=== PATIENT | female | born 1965 | race Caucasian/White ===

== ENCOUNTER 2018-04-28 18:04 | Emergency (ER) | payer BC ==
--- NOTE | 2018-04-28 18:23 | ED.PDOC ---
History of Present Illness - General Chief Complaint: General Stated Complaint: dizziness, vomiting, chest pressure yesterday Time Seen by Provider: 04/28/18 18:08 Source: patient Exam Limitations: no limitations - History of Present Illness Initial Comments: Tanya Holden 52 y/o female came to ER stating felt dizzy feels like spinning around and felt heart was racing also had some chest pressure with vomiting went inside the house then after 30 minutes felt better.Able to sleep ,eat beakfast,supper ,lunch .then about 3 PM today felt same symptoms and also her friend a nurse felt her pulse and noted was fast.She decided to come and get evaluated. here at ER.No weakness,no dysarthria,no blurry vision. Timing/Duration: 24 hours Severity: moderate Improving Factors: nothing Worsening Factors: nothing Associated Symptoms: other - see hpi Allergies/Adverse Reactions: Allergies Penicillins Allergy (Verified 04/28/18 18:16) Review of Systems - Review of Systems Constitutional: States: no symptoms reported EENTM: States: no symptoms reported Respiratory: States: no symptoms reported Cardiology: States: see HPI Gastrointestinal/Abdominal: States: no symptoms reported Musculoskeletal: States: no symptoms reported Skin: States: no symptoms reported Neurological: States: see HPI, other - dizziness Endocrine: States: no symptoms reported Hematologic/Lymphatic: States: no symptoms reported Past Medical History (General) - Patient Medical History Hx Hypertension: Yes Hx Other PMH: Yes - depression Surgical History: tonsillectomy, other - laparoscopy for endometriosis - Social History Hx Tobacco Use: No Hx Alcohol Use: Yes - eight beers daily Hx Substance Use: No - Female History Patient is a Female of Child Bearing Age (10 -59 yrs old): No Patient : No Family Medical History - Family History Father Hx Cardiac Disease: Yes Hx Family Cancer: Yes - dad-lung Physical Exam - Physical Exam General Appearance: Alert, Comfortable, No apparent distress Eye Exam: bilateral normal Ears, Nose, Throat: hearing grossly normal, normal ENT inspection, normal pharynx Neck: non-tender, full range of motion, supple Respiratory: chest non-tender, lungs clear, normal breath sounds Cardiovascular/Chest: normal peripheral pulses, regular rate, rhythm, no murmur Peripheral Pulses: radial,right: 2+, radial,left: 2+ Gastrointestinal/Abdominal: normal bowel sounds, non tender, soft, no organomegaly Back Exam: normal inspection, no CVA tenderness, no vertebral tenderness Extremity: non-tender, no pedal edema, no calf tenderness Neurologic: alert, oriented x 3 Skin Exam: normal color, warm/dry Progress - Progress Progress: 04/28/18 19:37 Vital Signs - 24 hr 04/28/18 04/28/18 04/28/18 18:10 18:12 18:35 Temperature 98.6 F Pulse Rate [ 85 88 102 H left brachial] Respiratory 16 Rate Blood Pressure 128/91 112/78 [left brachial] O2 Sat by Pulse 100 100 Oximetry 04/28/18 21:05 Recommended hospital admission for observation but patient declined her friend was with her during discussion for hospital obs.Labs /EKGS d/w patient as well as needing alcohol detox and counseling. - Results/Orders Results/Orders: 04/28/18 18:21 IV Care:Saline Lock per Protoc QSHIFT 04/28/18 18:30 EKG STAT 04/28/18 19:00 Multiple Vitamin Inj [MVI Injectable] 10 ml Thiamine HCl Inj 100 mg Sodium Chloride 0.9% 1000ML [Ns 1000 ml] 1,000 ml IVS Q24H Laboratory Results - last 24 hr 04/28/18 04/28/18 04/28/18 18:54 18:54 18:55 WBC 6.2 RBC 4.18 L Hgb 14.6 Hct 42.5 MCV 101.7 H MCH 34.9 H MCHC 34.3 RDW 12.7 Plt Count 275 MPV 6.5 L Absolute Neuts (auto) 4.20 Absolute Lymphs (auto) 1.20 Absolute Monos (auto) 0.70 Absolute Eos (auto) 0.00 Absolute Basos (auto) 0.00 Neutrophils % 67.6 Lymphocytes % 19.2 L Monocytes % 12.0 H Eosinophils % 0.7 L Basophils % 0.5 PT 9.9 INR 0.99 PTT (SP) 25.0 D-Dimer, Quantitative 0.28 Sodium 131 L Potassium 3.3 L Chloride 91 L Carbon Dioxide 25 Anion Gap 18.3 H BUN 16 Creatinine 0.82 BUN/Creatinine Ratio 19.5 Random Glucose 99 Serum Osmolality 263.9 L Calcium 9.6 Magnesium 1.8 Total Bilirubin 1.3 H Direct Bilirubin 0.3 H Indirect Bilirubin 1.0 H AST 64 H ALT 37 Alkaline Phosphatase 45 Creatine Kinase 74 CK-MB (CK-2) 1.9 CK-MB (CK-2) % Not Reportable Troponin I < 0.02 B-Natriuretic Peptide 15.8 Serum Total Protein 8.3 H Albumin 5.2 Urine Color Yellow Urine Appearance Clear Urine pH 5.5 Ur Specific Ward 1.015 Urine Protein Trace Urine Glucose (UA) Negative Urine Ketones 15 H Urine Blood Negative Urine Nitrite Negative Urine Bilirubin Small H Urine Urobilinogen 0.2 Ur Leukocyte Esterase Negative Urine RBC 1-3 Urine WBC 3-5 H Ur Epithelial Cells 30-40 Urine Bacteria 2+ H Urine Mucus Small Urine Opiates Screen Urine Barbiturates Ur Phencyclidine Scrn U Amphetamin/Meth Scrn U Benzodiazepines Scrn U Cocaine Metab Screen U Cannabinoids Screen 04/28/18 04/28/18 19:19 20:15 WBC RBC Hgb Hct MCV MCH MCHC RDW Plt Count MPV Absolute Neuts (auto) Absolute Lymphs (auto) Absolute Monos (auto) Absolute Eos (auto) Absolute Basos (auto) Neutrophils % Lymphocytes % Monocytes % Eosinophils % Basophils % PT INR PTT (SP) D-Dimer, Quantitative Sodium Potassium Chloride Carbon Dioxide Anion Gap BUN Creatinine BUN/Creatinine Ratio Random Glucose Serum Osmolality Calcium Magnesium Total Bilirubin Direct Bilirubin Indirect Bilirubin AST ALT Alkaline Phosphatase Creatine Kinase CK-MB (CK-2) CK-MB (CK-2) % Troponin I < 0.02 B-Natriuretic Peptide Serum Total Protein Albumin Urine Color Urine Appearance Urine pH Ur Specific Ward Urine Protein Urine Glucose (UA) Urine Ketones Urine Blood Urine Nitrite Urine Bilirubin Urine Urobilinogen Ur Leukocyte Esterase Urine RBC Urine WBC Ur Epithelial Cells Urine Bacteria Urine Mucus Urine Opiates Screen Negative Urine Barbiturates Negative Ur Phencyclidine Scrn Negative U Amphetamin/Meth Scrn Negative U Benzodiazepines Scrn Negative U Cocaine Metab Screen Negative U Cannabinoids Screen Negative - EKG/XRAY/CT EKG: Sinus, nonspecific ST T wave Chg Comments: HR-91 XRAY: chest - no active disease Departure - Departure Clinical Impression: Dizzinesses, Chest pressure, Heart palpitations Alcohol dependence Qualifiers: Substance use status: uncomplicated Qualified Code(s): F10.20 - Alcohol dependence, uncomplicated Time of Disposition: 21:05 Disposition: Discharge to Home or Self Care Condition: Fair Departure Forms: ED Discharge - Pt. Copy, Patient Portal Self Enrollment Instructions: Cirrhosis, Alcohol Use - When Is Drinking a Problem?, Alcohol Abuse and Alcoholism (DC) Referrals: Darian Smith MD [Primary Care Provider] - 1-2 Weeks Additional Instructions: Return to emergency room as needed;Follow up with your primary Md 01 MAY 2018
[2018-04-28 18:27] VITALS: TEMP 98.6
[2018-04-28] MEDS ORDERED: MULTIPLE VITAMIN 10 ML VIAL ONE (18:59)
[2018-04-28] MEDS ORDERED: THIAMINE HCL INJ 100 MG/ML VIAL ONE (18:59)
[2018-04-28] MEDS ORDERED: SODIUM CHLORIDE 0.9% 1000ML 1,000 ML ONE (18:59)
[2018-04-28] MEDS ORDERED: MULTIPLE VITAMIN INJ 10 ML, THIAMINE HCL INJ 100 MG in SODIUM CHLORIDE 0.9% 1000ML 1,00... IVS SCH (19:00)
--- NOTE | 2018-04-28 19:24 | RAD ---
PROCEDURE: XR Chest, 1 View CLINICAL INDICATION: The patient is 52 years old and is Female; pain TECHNIQUE: Frontal view of the chest. COMPARISON: No relevant prior studies available. FINDINGS: LUNGS: Unremarkable. No consolidation. PLEURAL SPACE: Unremarkable. No pneumothorax. HEART: Unremarkable. No cardiomegaly. MEDIASTINUM: Unremarkable. BONES/JOINTS: Unremarkable. IMPRESSION: No active disease is seen in the chest. Electronically signed by: Delano Spears MD 04/28/2018 7:23 PM CDT
[2018-04-28] MEDS ORDERED: chlordiazePOXIDE HCL 25 MG CAP PO ONE (19:55)
[2018-04-28] MEDS ORDERED: chlordiazePOXIDE HCL 25 MG CAP ONE (19:59)
[2018-04-28 21:37] VITALS: BP 142/91; O2SAT 98
== END 2018-04-28 21:22 | disposition home or self-care (01) ==
LOC: ER 18:04
DX: R07.89 Other chest pain (principal); R00.2 Palpitations; R42 Dizziness and giddiness; I10 Essential (primary) hypertension; F32.9 Major depressive disorder, single episode, unspecified; Z88.0 Allergy status to penicillin
CPT/HCPCS: 36415; 71045; 80048; 80076; 80307; 81001; 82550; 82553; 83880; 84484; 85025; 85379; 85610; 85730; 93005; J3411; J7030

== ENCOUNTER → 2018-05-02 | Outpatient (CLI) | payer BC ==
--- NOTE | 2018-05-03 14:29 | US ---
EXAM DESCRIPTION: Ultrasound abdomen limited right upper quadrant CLINICAL HISTORY: Unspecified cirrhosis of liver COMPARISON: None Available. TECHNIQUE: Right upper quadrant ultrasound FINDINGS: Pancreas: Visualized portions of the pancreas are unremarkable. Bowel gas obscures some areas. Aorta/inferior vena cava: No aortic aneurysm. Normal inferior vena cava. Liver: The liver is homogeneous in texture with increased echogenicity consistent with diffuse hepatic steatosis. No focal liver lesion or intrahepatic bile duct dilatation. No liver surface irregularity. Normal appearance of the portal vein and hepatic veins. Gallbladder: Gallbladder appears normal with no intraluminal stones or wall thickening. Common bile duct: Normal caliber measuring 5.0 mm. Right kidney: Renal length is 10.0 cm. Normal cortical echogenicity. Cortical thickness is normal. No hydronephrosis is seen. No renal mass or shadowing calculus. IMPRESSION: Diffuse hepatic steatosis. Otherwise no diagnostic abnormality is identified on sonographic examination of the right upper quadrant. Electronically signed by: Dallas Diggs MD 05/03/2018 2:28 PM CDT
== END ==
LOC: LAB.O 11:54
PROVIDERS: ATTEND Obstetrics & Gynecology
DX: K74.60 Unspecified cirrhosis of liver (principal); K76.0 Fatty (change of) liver, not elsewhere classified